=== PATIENT | male | born 1955 | race Caucasian/White ===

== ENCOUNTER 2021-02-20 12:38 | Inpatient (IN) | payer OTHER ==
[~2021-02-20] VITALS: Ht 154.9 cm; Wt 66.2 kg
[2021-02-20] MEDS ORDERED: LABETALOL 5MG/ML SYR 20 MG/4 ML SYRINGE IV ONE (13:15)
[2021-02-20 13:57] LABS: BASOPHILS % 0.9 % (0.0-2.0); EOSINOPHILS % 5.8 % (0.0-5.0); HEMATOCRIT. 28.5 % (42.0-52.0); HEMOGLOBIN. 9.6 g/dL (14.0-18.0); LYMPHOCYTES % 17.3 % (20.0-50.0); MEAN CORPUSCULAR HEMOGLOBIN 32.1 pg (28.0-32.0); MEAN CORPUSCULAR VOLUME 95.4 fL (80.0-94.0); MEAN PLATELET VOLUME 8.9 fl (7.4-10.4); MONOCYTES % 7.4 % (2.0-8.0); NEUTROPHILS % 68.6 % (40.0-76.0); PLATELET 279 x1000/uL (130-400); RED BLOOD CELL COUNT 2.99 mill/uL (4.7-6.1); RED CELL DISTRIBUTION WIDTH 14.4 % (11.6-14.6)
[2021-02-20 14:05] LABS: CHLORIDE 114 mEq/L (98-107)
[2021-02-20 14:09] LABS: INR 0.9; PARTIAL THROMBOPLASTIN TIME 29.1 sec (23.4-31.0); PROTHROMBIN TIME 10.1 sec (9.6-11.0)
[2021-02-20 14:41] LABS: CLARITY URINE CLEAR (CLEAR); COLOR URINE YELLOW (YELLOW); KETONES URINE NEGATIVE (NEGATIVE); LEUKOCYTE ESTERASE URINE NEGATIVE (NEGATIVE); NITRITE URINE NEGATIVE (NEGATIVE); OCCULT BLOOD URINE 1+ (NEGATIVE); PH URINE 6.5 (4.5-8.0); PROTEIN URINE 3+ (NEGATIVE); SPECIFIC GRAVITY URINE 1.011 (1.005-1.030); UROBILINOGEN URINE 0.2 E.U./dL (0.2-1.0)
[2021-02-20 15:00] LABS: *AMPHETAMINES SCREEN URINE NEGATIVE (NEGATIVE); *BARBITURATES SCREEN URINE NEGATIVE (NEGATIVE); *BENZODIAZEPINES SCREEN URINE NEGATIVE (NEGATIVE); *COCAINE SCREEN URINE NEGATIVE (NEGATIVE); CANNABINOID URINE SCREEN NEGATIVE (NEGATIVE); METHADONE URINE SCREEN NEGATIVE (NEGATIVE); OPIATES URINE SCREEN NEGATIVE (NEGATIVE); PHENCYCLIDINE URINE SCREEN NEGATIVE (NEGATIVE)
[2021-02-20] MEDS ORDERED: GUAIFENESIN 200MG/10ML SUGAR FREE UDC PO PRN (16:45)
[2021-02-20] MEDS ORDERED: MORPHINE SULFATE 2 MG/ML CPJ (NOT FOR IM USE) IV PRN (16:45)
[2021-02-20] MEDS ORDERED: MAGNESIUM/ALUMINUM HYDROXIDE/SIMETHICONE 30ML UDC PO PRN (16:45)
[2021-02-20] MEDS ORDERED: ACETAMINOPHEN 650MG/20.3ML UDC GT PRN (16:45)
[2021-02-20] MEDS ORDERED: HYDROCODONE/ACETAMINOPHEN 5/325MG TABLET PO PRN (16:45)
[2021-02-20] MEDS ORDERED: DIPHENHYDRAMINE 50MG/ML VIAL IV PRN (16:45)
[2021-02-20] MEDS ORDERED: NA PHOS,M-B/NA PHOS,DI-BA ENEMA 118ML PR PRN (16:45)
[2021-02-20] MEDS ORDERED: IPRATROPIUM/ALBUTEROL 0.5-3(2.5)MG/3ML NEB NEB PRN (16:45)
[2021-02-20] MEDS ORDERED: ONDANSETRON HCL 4MG/2ML INJ IV PRN (16:45)
[2021-02-20] MEDS ORDERED: ACETAMINOPHEN 650MG SUPP PR PRN (16:45)
[2021-02-20] MEDS ORDERED: LORAZEPAM 0.5MG TABLET PO PRN (16:45)
[2021-02-20] MEDS ORDERED: DOCUSATE SODIUM 100MG CAPSULE PO PRN (16:45)
[2021-02-20] MEDS ORDERED: DEXTROSE 50% WATER 50ML SYRINGE IV PRN (17:15)
[2021-02-20] MEDS: AMLODIPINE 5MG TABLET PO SCH (17:18)
[2021-02-20] MEDS: INSULIN LISPRO 100 UNITS/ML SUBCUT SCH ×2 (18:20→21:00)
[2021-02-20] MEDS: BLOOD SUGAR DIAGNOSTIC STRIP TEST SCH (21:30)
[2021-02-20 22:30] VITALS: BP 178/84
[2021-02-20] MEDS: CLONIDINE 0.1MG TABLET PO PRN ×2 (23:17→23:22)
[2021-02-20] MEDS: FAMOTIDINE 20MG TABLET PO SCH (23:22)
[2021-02-21 00:13] LABS: CREATINE KINASE 45 IU/L (39-308)
[2021-02-21 00:14] LABS: CREATINE KINASE MB FRACTION 2.5 ng/mL (0.5-3.6)
[2021-02-21] MEDS ORDERED: FERR325T6 PO (00:34)
[2021-02-21] MEDS ORDERED: BENA20TA10 PO (00:34)
[2021-02-21] MEDS ORDERED: INSLIS SUBCUT (00:34)
[2021-02-21] MEDS ORDERED: DOCU-138 PO (00:34)
[2021-02-21] MEDS ORDERED: FURO-152 PO (00:34)
[2021-02-21] MEDS ORDERED: INSU100I28 SQ (00:34)
[2021-02-21] MEDS ORDERED: AMLO5TAB4 PO (00:34)
[2021-02-21] MEDS: BLOOD SUGAR DIAGNOSTIC STRIP TEST SCH ×4 (05:18→20:14)
[2021-02-21] MEDS: INSULIN LISPRO 100 UNITS/ML SUBCUT SCH ×4 (05:18→20:17)
[2021-02-21 07:53] LABS: BASOPHILS % 0.9 % (0.0-2.0); EOSINOPHILS % 6.6 % (0.0-5.0); HEMATOCRIT. 27.2 % (42.0-52.0); HEMOGLOBIN. 9.3 g/dL (14.0-18.0); LYMPHOCYTES % 16.9 % (20.0-50.0); MEAN CORPUSCULAR HEMOGLOBIN 32.3 pg (28.0-32.0); MEAN CORPUSCULAR VOLUME 94.4 fL (80.0-94.0); MONOCYTES % 7.7 % (2.0-8.0); NEUTROPHILS % 67.9 % (40.0-76.0); PLATELET 262 x1000/uL (130-400); RED BLOOD CELL COUNT 2.88 mill/uL (4.7-6.1); RED CELL DISTRIBUTION WIDTH 14.2 % (11.6-14.6)
[2021-02-21 08:00] VITALS: BP 156/71
[2021-02-21 08:06] LABS: CHLORIDE 116 mEq/L (98-107)
[2021-02-21 08:16] LABS: LDL CHOLESTEROL 78 mg/dL (5-100); T4 FREE 0.74 ng/dL (0.76-1.46)
[2021-02-21 08:18] LABS: CREATINE KINASE 38 IU/L (39-308)
[2021-02-21 08:19] LABS: HDL CHOLESTEROL 30 mg/dL (40-59)
[2021-02-21] MEDS: AMLODIPINE 5MG TABLET PO SCH ×2 (08:54→18:12)
[2021-02-21] MEDS: BENAZEPRIL 10MG TABLET PO SCH ×2 (08:54→18:12)
[2021-02-21 12:00] VITALS: BP 159/83
[2021-02-21] MEDS ORDERED: SODIUM POLYSTYRENE SULFONATE 15 G/60 ML BOT PO NR (13:00)
[2021-02-21 14:20] LABS: HEPATITIS B SURFACE ANTIGEN NEGATIVE
[2021-02-21] MEDS: FUROSEMIDE 20MG/2ML VIAL IVP SCH (14:33)
[2021-02-21 14:48] LABS: HEPATITIS A AB IGM NEGATIVE (NEGATIVE)
[2021-02-21 16:00] VITALS: BP 162/72
[2021-02-21 20:00] VITALS: BP 158/89
[2021-02-21] MEDS: FAMOTIDINE 20MG TABLET PO SCH (20:14)
[2021-02-22] VITALS: BP 159/85
[2021-02-22 04:00] VITALS: BP 148/80
[2021-02-22] MEDS: BLOOD SUGAR DIAGNOSTIC STRIP TEST SCH ×2 (06:06→11:45)
[2021-02-22] MEDS: INSULIN LISPRO 100 UNITS/ML SUBCUT SCH ×2 (06:06→12:09)
[2021-02-22 08:00] VITALS: BP 156/79
[2021-02-22] MEDS: FUROSEMIDE 20MG/2ML VIAL IVP SCH (09:10)
[2021-02-22] MEDS: AMLODIPINE 5MG TABLET PO SCH (09:11)
[2021-02-22] MEDS: BENAZEPRIL 10MG TABLET PO SCH (09:11)
[2021-02-22] MEDS ORDERED: BENA20TA10 MT (11:15)
[2021-02-22] MEDS ORDERED: FURO-151 MT (11:15)
[2021-02-22] MEDS ORDERED: AMLO5TAB4 MT (11:15)
[2021-02-22 12:00] VITALS: BP 168/76
[2021-02-22] MEDS: CLONIDINE 0.1MG TABLET PO PRN (12:08)
[2021-02-22 12:39] LABS: BASOPHILS % 0.7 % (0.0-2.0); EOSINOPHILS % 5.6 % (0.0-5.0); HEMATOCRIT. 29.4 % (42.0-52.0); HEMOGLOBIN. 10.2 g/dL (14.0-18.0); LYMPHOCYTES % 16.8 % (20.0-50.0); MEAN CORPUSCULAR HEMOGLOBIN 32.5 pg (28.0-32.0); MEAN CORPUSCULAR VOLUME 93.8 fL (80.0-94.0); MEAN PLATELET VOLUME 8.5 fl (7.4-10.4); MONOCYTES % 6.7 % (2.0-8.0); NEUTROPHILS % 70.2 % (40.0-76.0); PLATELET 294 x1000/uL (130-400); RED BLOOD CELL COUNT 3.14 mill/uL (4.7-6.1); RED CELL DISTRIBUTION WIDTH 13.6 % (11.6-14.6)
[2021-02-22 14:28] VITALS: BP 135/52
[2021-02-22 16:00] VITALS: BP 135/52
== END 2021-02-22 16:45 | disposition home or self-care (01) | DRG 304 ==
LOC: ER 12:38 → 5WST 15:02 → EDBEDREQ 15:45 → EDBEDREQTM 15:45 → SUPCPDRO 16:31 → ENRESERV 21:13
PROVIDERS: ADMIT Internal Medicine; ATTEND Internal Medicine
PROC: 5A1D70Z Performance of Urinary Filtration, Intermittent, Less than 6 Hours Per Day (ICD-10-PCS; principal; 2021-02-20)
DX: I16.0 Hypertensive urgency (principal); N18.6 End stage renal disease; E46 Unspecified protein-calorie malnutrition; I12.0 Hypertensive chronic kidney disease with stage 5 chronic kidney disease or end stage renal disease; D64.9 Anemia, unspecified; E11.22 Type 2 diabetes mellitus with diabetic chronic kidney disease; E78.00 Pure hypercholesterolemia, unspecified; E78.5 Hyperlipidemia, unspecified; Z20.822 Contact with and (suspected) exposure to COVID-19; Z79.4 Long term (current) use of insulin; Z99.2 Dependence on renal dialysis; Z79.899 Other long term (current) drug therapy; Z88.8 Allergy status to other drugs, medicaments and biological substances; Z91.14 Patient's other noncompliance with medication regimen; Z68.27 Body mass index [BMI] 27.0-27.9, adult
CPT/HCPCS: 36415; 71045; 80048; 80053; 80061; 80305; 81003; 82550; 82553; 82962; 83036; 84439; 84443; 84484; 85025; 86705; 86709; 86803; 87340; 87426; 93005; 93970; 97162; 99285; C1893; J1815; J1940; J3490

== ENCOUNTER 2021-07-10 19:47 | Emergency (ER) | payer OTHER ==
[~2021-07-10] VITALS: Ht 154.9 cm; Wt 64.0 kg
[~2021-07-10 19:47] MED LIST: AMLO5TAB4 MT; AMLO5TAB4 PO; BENA20TA10 MT; BENA20TA10 PO; DOCU-138 PO; FERR325T6 PO; FURO-151 MT; INSLIS SUBCUT; INSU100I28 SQ
[2021-07-10 21:13] LABS: BASOPHILS % 1.4 % (0.0-2.0); EOSINOPHILS % 4.9 % (0.0-5.0); HEMATOCRIT. 24.8 % (42.0-52.0); HEMOGLOBIN. 8.1 g/dL (14.0-18.0); LYMPHOCYTES % 10.8 % (20.0-50.0); MEAN CORPUSCULAR HEMOGLOBIN 30.5 pg (28.0-32.0); MEAN CORPUSCULAR VOLUME 93.8 fL (80.0-94.0); MEAN PLATELET VOLUME 10.6 fl (7.4-10.4); MONOCYTES % 9.7 % (2.0-8.0); NEUTROPHILS % 73.2 % (40.0-76.0); PLATELET 197 x1000/uL (130-400); RED BLOOD CELL COUNT 2.65 mill/uL (4.7-6.1); RED CELL DISTRIBUTION WIDTH 15.8 % (11.6-14.6)
[2021-07-10 21:18] LABS: CHLORIDE 118 mEq/L (98-107)
[2021-07-10] MEDS ORDERED: AMIODARONE HCL 900 MG in DEXT 5% WATER 482 ML IV STA (23:34)
[2021-07-10] MEDS ORDERED: NIFEDIPINE 10MG CAPSULE PO ONE (23:45)
[2021-07-11 01:00] VITALS: BP 116/60
== END 2021-07-11 02:40 | disposition short-term general hospital (02) ==
LOC: ER 19:47 → CANBEDREQ 07-11 02:29 → ER 07-11 02:40
DX: J81.1 Chronic pulmonary edema (principal); I12.0 Hypertensive chronic kidney disease with stage 5 chronic kidney disease or end stage renal disease; R00.0 Tachycardia, unspecified; E11.22 Type 2 diabetes mellitus with diabetic chronic kidney disease; N18.6 End stage renal disease; D64.9 Anemia, unspecified; Z99.2 Dependence on renal dialysis; Z79.84 Long term (current) use of oral hypoglycemic drugs
CPT/HCPCS: 36415; 71045; 80053; 83880; 84484; 85025; 93005; 99285; J0282; J7060

== ENCOUNTER 2021-07-25 14:23 | Inpatient (IN) | payer OTHER ==
[~2021-07-25] VITALS: Ht 157.5 cm; Wt 69.2 kg
[2021-07-25] MEDS ORDERED: ONDANSETRON HCL 4MG/2ML INJ IV STA (14:47)
[2021-07-25] MEDS ORDERED: CLONIDINE 0.2MG TABLET PO ONE (15:00)
[2021-07-25] MEDS ORDERED: ONDANSETRON HCL 4MG/2ML INJ IM ONE (15:00)
[2021-07-25 15:15] LABS: HEMATOCRIT. 25.6 % (42.0-52.0); HEMOGLOBIN. 7.9 g/dL (14.0-18.0); MEAN CORPUSCULAR HEMOGLOBIN 28.8 pg (28.0-32.0); MEAN CORPUSCULAR VOLUME 92.8 fL (80.0-94.0); MEAN PLATELET VOLUME 9.2 fl (7.4-10.4); PLATELET 307 x1000/uL (130-400); RED BLOOD CELL COUNT 2.76 mill/uL (4.7-6.1); RED CELL DISTRIBUTION WIDTH 15.5 % (11.6-14.6)
[2021-07-25 15:17] LABS: CHLORIDE 110 mEq/L (98-107)
[2021-07-25 15:57] LABS: PLATELET ESTIMATE NORMAL
[2021-07-25] MEDS ORDERED: ASPIRIN 81MG TABLET PO ONE (17:15)
[2021-07-25] MEDS ORDERED: NITROGLYCERIN OINT 1GM/INCH UDPKT TD ONE (17:15)
[2021-07-26] VITALS (11 sets, daily range): BP systolic 131–185; BP diastolic 44–85
[2021-07-26] MEDS ORDERED: *PATIENT'S OWN MEDICATION STORAGE XX SCH (03:00)
[2021-07-26] MEDS ORDERED: FURO40TA5 PO (03:19)
[2021-07-26] MEDS ORDERED: BISA5TAB10 PO (03:19)
[2021-07-26] MEDS ORDERED: BENA10TA74 PO (03:19)
[2021-07-26] MEDS: HEPARIN SODIUM 1,000 UNIT/1ML VIAL IV NR (03:48)
[2021-07-26 04:12] LABS: HEPATITIS B SURFACE ANTIGEN NEGATIVE
[2021-07-26] MEDS ORDERED: DEXTROSE 50% WATER 50ML SYRINGE IV PRN (04:30)
[2021-07-26] MEDS ORDERED: ACETAMINOPHEN 325MG TABLET PO PRN (04:30)
[2021-07-26] MEDS ORDERED: ONDANSETRON HCL 4MG/2ML INJ IV PRN (04:30)
[2021-07-26] MEDS ORDERED: NALOXONE HCL 0.4MG/ML VIAL IV PRN (04:45)
[2021-07-26] MEDS: BLOOD SUGAR DIAGNOSTIC STRIP TEST SCH ×4 (07:10→20:42)
[2021-07-26] MEDS: INSULIN LISPRO 100 UNITS/ML SUBCUT SCH ×4 (07:40→20:42)
[2021-07-26] MEDS: HYDROCODONE/ACETAMINOPHEN 5/325MG TABLET PO PRN (08:49)
[2021-07-26] MEDS ORDERED: HEPARIN 5000 UNITS/ML VIAL SUBCUT SCH (09:00)
[2021-07-26 10:35] LABS: MEAN CORPUSCULAR HEMOGLOBIN 28.9 pg (28.0-32.0); MEAN CORPUSCULAR VOLUME 91.4 fL (80.0-94.0); MEAN PLATELET VOLUME 9.4 fl (7.4-10.4); PLATELET 214 x1000/uL (130-400); RED BLOOD CELL COUNT 2.08 mill/uL (4.7-6.1)
[2021-07-26 10:50] LABS: HEMATOCRIT. 19.1 % (42.0-52.0)
[2021-07-26] MEDS ORDERED: VANCOMYCIN 1500MG in DEXTROSE 5% WATER 250ML IV NR (12:00)
[2021-07-26 12:08] LABS: BG BASE EXCESS -4.8 mmol/L (-2.0-2.0); BG CARBOXYHEMOGLOBIN 0.3 % (0.5-1.5); BG DEOXYHEMOGLOBIN 2.7 % (0.0-5.0); BG HCO3 ACT 20.8 mmol/L (22.0-26.0); BG METHEMOGLOBIN 0.2 % (0.0-1.5); BG OXYGEN SATURATION 97.3 % (92.0-98.5); BG OXYHEMOGLOBIN 96.8 % (94.0-97.0); BG PCO2 40.6 mmHg (35.0-45.0); BG PH 7.327 (7.350-7.450); BG SAMPLE SITE RIGHT BRACHIAL; BG TOTAL HEMOGLOBIN 7.6 g/dL (12.0-18.0); BG VENT MODE NASAL CANNULA
[2021-07-26] MEDS: PIPERACILLIN/TAZOBACTAM 3.375 G in DEXTROSE 5% WATER 50 ML IV SCH ×2 (16:30→20:33)
[2021-07-26] MEDS: CLONIDINE 0.1MG TABLET PO PRN (17:24)
[2021-07-26 17:56] LABS: PLATELET ESTIMATE NORMAL
[2021-07-26] MEDS: IPRATROPIUM/ALBUTEROL 0.5-3(2.5)MG/3ML NEB HHN SCH (20:30)
[2021-07-27] VITALS (8 sets, daily range): BP systolic 110–150; BP diastolic 47–65
[2021-07-27] MEDS: IPRATROPIUM/ALBUTEROL 0.5-3(2.5)MG/3ML NEB HHN SCH ×4 (01:01→21:43)
[2021-07-27] MEDS: BLOOD SUGAR DIAGNOSTIC STRIP TEST SCH ×4 (06:03→21:42)
[2021-07-27] MEDS: INSULIN LISPRO 100 UNITS/ML SUBCUT SCH ×4 (06:03→21:00)
[2021-07-27] MEDS: PIPERACILLIN/TAZOBACTAM 3.375 G in DEXTROSE 5% WATER 50 ML IV SCH ×2 (09:07→21:47)
[2021-07-27] MEDS ORDERED: BISACODYL 5MG TABLET PO PRN (13:30)
[2021-07-27] MEDS ORDERED: FUROSEMIDE 40MG/4ML VIAL IVP NR (13:30)
[2021-07-27] MEDS: DOCUSATE SODIUM 100MG CAPSULE PO SCH (14:22)
[2021-07-27] MEDS ORDERED: LIDOCAINE HCL 1% 20ML VIAL (Pyxis) INJ ONE (14:24)
[2021-07-27] MEDS ORDERED: LIDOCAINE HCL 1% 10 MG/ML 10ML VIAL ONE (15:01)
[2021-07-27] MEDS ORDERED: SORBITOL 70% SOLN 30ML PO NR (16:30)
[2021-07-27 16:59] LABS: BG BASE EXCESS -6.9 mmol/L (-2.0-2.0); BG CARBOXYHEMOGLOBIN 0.2 % (0.5-1.5); BG DEOXYHEMOGLOBIN 9.7 % (0.0-5.0); BG FRACTION INSPIRED OXYGEN 21; BG METHEMOGLOBIN 0.2 % (0.0-1.5); BG OXYGEN SATURATION 90.3 % (92.0-98.5); BG OXYHEMOGLOBIN 89.9 % (94.0-97.0); BG PCO2 39.5 mmHg (35.0-45.0); BG PH 7.299 (7.350-7.450); BG PO2 61.6 mmHg (75.0-100.0); BG VENT MODE ROOM AIR
[2021-07-27 16:59] LABS: HEMOGLOBIN. 8.4 g/dL (14.0-18.0); MEAN CORPUSCULAR HEMOGLOBIN 29.5 pg (28.0-32.0); MEAN CORPUSCULAR VOLUME 91.1 fL (80.0-94.0); MEAN PLATELET VOLUME 9.5 fl (7.4-10.4); PLATELET 213 x1000/uL (130-400); RED BLOOD CELL COUNT 2.86 mill/uL (4.7-6.1); RED CELL DISTRIBUTION WIDTH 15.8 % (11.6-14.6)
[2021-07-27 17:03] LABS: CHLORIDE 106 mEq/L (98-107)
[2021-07-27 17:06] LABS: PROTHROMBIN TIME 11.1 sec (9.6-11.0)
[2021-07-27 17:09] LABS: LDL CHOLESTEROL 46 mg/dL (5-100); TOTAL IRON BINDING CAPACITY 190 ug/dL (250-450)
[2021-07-27 17:12] LABS: T4 FREE 1.01 ng/dL (0.76-1.46)
[2021-07-27 17:14] LABS: HDL CHOLESTEROL 39 mg/dL (40-59)
[2021-07-27 17:33] LABS: FERRITIN 797 ng/mL (22-322); VITAMIN B12 SERUM 534 pg/mL (211-911)
[2021-07-27] MEDS: PANTOPRAZOLE SODIUM 40 MG/VIAL IV SCH (17:37)
[2021-07-27 18:40] LABS: PLATELET ESTIMATE NORMAL
[2021-07-27] MEDS ORDERED: VANCOMYCIN 500 MG PREMIX 100 ML IV NR (23:00)
[2021-07-28] VITALS: BP 165/76
[2021-07-28 01:25] LABS: HEMATOCRIT. 26.6 % (42.0-52.0); HEMOGLOBIN. 8.6 g/dL (14.0-18.0); MEAN CORPUSCULAR HEMOGLOBIN 29.3 pg (28.0-32.0); MEAN CORPUSCULAR VOLUME 90.4 fL (80.0-94.0); MEAN PLATELET VOLUME 9.7 fl (7.4-10.4); PLATELET 218 x1000/uL (130-400); RED BLOOD CELL COUNT 2.94 mill/uL (4.7-6.1); RED CELL DISTRIBUTION WIDTH 15.4 % (11.6-14.6)
[2021-07-28] MEDS: CLONIDINE 0.1MG TABLET PO PRN ×2 (02:21→22:28)
[2021-07-28] MEDS: PIPERACILLIN/TAZOBACTAM 3.375 G in DEXTROSE 5% WATER 50 ML IV SCH ×3 (02:21→22:29)
[2021-07-28] MEDS: IPRATROPIUM/ALBUTEROL 0.5-3(2.5)MG/3ML NEB HHN SCH ×4 (02:36→21:26)
[2021-07-28 03:51] LABS: PLATELET ESTIMATE NORMAL
[2021-07-28 04:00] VITALS: BP 121/53
[2021-07-28 06:20] LABS: HEMATOCRIT. 25.1 % (42.0-52.0); HEMOGLOBIN. 8.2 g/dL (14.0-18.0); MEAN CORPUSCULAR HEMOGLOBIN 29.9 pg (28.0-32.0); MEAN CORPUSCULAR VOLUME 91.5 fL (80.0-94.0); PLATELET 200 x1000/uL (130-400); RED BLOOD CELL COUNT 2.74 mill/uL (4.7-6.1); RED CELL DISTRIBUTION WIDTH 15.1 % (11.6-14.6)
[2021-07-28] MEDS: INSULIN LISPRO 100 UNITS/ML SUBCUT SCH ×4 (06:29→22:41)
[2021-07-28 06:39] LABS: FOLIC ACID (FOLATE) SERUM 5.9 ng/mL (>5.38)
[2021-07-28] MEDS: BLOOD SUGAR DIAGNOSTIC STRIP TEST SCH ×4 (07:10→21:00)
[2021-07-28 08:00] VITALS: BP 147/81
[2021-07-28] MEDS: DOCUSATE SODIUM 100MG CAPSULE PO SCH (09:18)
[2021-07-28] MEDS: PANTOPRAZOLE SODIUM 40 MG/VIAL IV SCH ×2 (09:19→22:28)
[2021-07-28 09:54] LABS: PROTHROMBIN TIME 10.9 sec (9.6-11.0)
[2021-07-28] MEDS ORDERED: SODIUM BICARBONATE 4% (2.4MEQ) 5ML VIAL IV ONE (10:48)
[2021-07-28] MEDS ORDERED: LIDOCAINE HCL/EPINEPHRINE 1%-EPI 1:100,000 20 ML VIAL ONE (10:50)
[2021-07-28 12:00] VITALS: BP 142/59
[2021-07-28 14:09] LABS: PLATELET ESTIMATE NORMAL
[2021-07-28 16:00] VITALS: BP 132/68
[2021-07-28] MEDS ORDERED: EPOETIN ALFA 10000UNITS/ML VIAL SUBCUT ONE (18:00)
[2021-07-28 20:00] VITALS: BP 170/73
[2021-07-28] MEDS ORDERED: EPOETIN ALFA-EPBX 4,000 UNIT/ML VIAL SUBCUT NR (21:00)
[2021-07-28] MEDS: ZOLPIDEM TARTRATE 5MG TABLET PO PRN (22:28)
[2021-07-28] MEDS: HYDROCODONE/ACETAMINOPHEN 5/325MG TABLET PO PRN (22:29)
[2021-07-29] VITALS (8 sets, daily range): BP systolic 132–177; BP diastolic 63–73
[2021-07-29] MEDS: IPRATROPIUM/ALBUTEROL 0.5-3(2.5)MG/3ML NEB HHN SCH ×4 (03:07→20:55)
[2021-07-29] MEDS: CLONIDINE 0.1MG TABLET PO PRN ×2 (05:12→20:28)
[2021-07-29] MEDS: BLOOD SUGAR DIAGNOSTIC STRIP TEST SCH ×4 (06:01→20:31)
[2021-07-29] MEDS: INSULIN LISPRO 100 UNITS/ML SUBCUT SCH ×4 (06:01→20:31)
[2021-07-29 06:44] LABS: HEMATOCRIT. 25.1 % (42.0-52.0); HEMOGLOBIN. 8.2 g/dL (14.0-18.0); MEAN CORPUSCULAR HEMOGLOBIN 30.2 pg (28.0-32.0); MEAN CORPUSCULAR VOLUME 92.1 fL (80.0-94.0); MEAN PLATELET VOLUME 9.9 fl (7.4-10.4); PLATELET 203 x1000/uL (130-400); RED BLOOD CELL COUNT 2.73 mill/uL (4.7-6.1); RED CELL DISTRIBUTION WIDTH 15.5 % (11.6-14.6)
[2021-07-29] MEDS: DOCUSATE SODIUM 100MG CAPSULE PO SCH (08:57)
[2021-07-29] MEDS: PIPERACILLIN/TAZOBACTAM 3.375 G in DEXTROSE 5% WATER 50 ML IV SCH ×2 (08:57→20:29)
[2021-07-29 09:24] LABS: PLATELET ESTIMATE NORMAL
[2021-07-29] MEDS: PANTOPRAZOLE SODIUM 40 MG/VIAL IV SCH ×2 (12:58→20:28)
[2021-07-29] MEDS: LOSARTAN POTASSIUM 25 MG TABLET PO SCH ×2 (17:00→17:08)
[2021-07-29] MEDS: AMLODIPINE 2.5MG TABLET PO SCH (20:29)
[2021-07-30] VITALS: BP 176/76
[2021-07-30] MEDS: IPRATROPIUM/ALBUTEROL 0.5-3(2.5)MG/3ML NEB HHN SCH ×4 (01:52→21:39)
[2021-07-30] MEDS: CLONIDINE 0.2MG TABLET PO PRN (02:27)
[2021-07-30] MEDS: ZOLPIDEM TARTRATE 5MG TABLET PO PRN ×2 (02:31→22:33)
[2021-07-30 04:00] VITALS: BP 170/80
[2021-07-30] MEDS: INSULIN LISPRO 100 UNITS/ML SUBCUT SCH ×4 (06:17→20:34)
[2021-07-30] MEDS: BLOOD SUGAR DIAGNOSTIC STRIP TEST SCH ×4 (06:17→20:35)
[2021-07-30 06:26] LABS: BASOPHILS % 1.2 % (0.0-2.0); EOSINOPHILS % 4.5 % (0.0-5.0); HEMATOCRIT. 24.4 % (42.0-52.0); LYMPHOCYTES % 9.2 % (20.0-50.0); MEAN CORPUSCULAR HEMOGLOBIN 29.9 pg (28.0-32.0); MEAN CORPUSCULAR VOLUME 91.8 fL (80.0-94.0); MEAN PLATELET VOLUME 9.6 fl (7.4-10.4); MONOCYTES % 14.2 % (2.0-8.0); NEUTROPHILS % 70.9 % (40.0-76.0); PLATELET 192 x1000/uL (130-400); RED BLOOD CELL COUNT 2.66 mill/uL (4.7-6.1); RED CELL DISTRIBUTION WIDTH 14.9 % (11.6-14.6)
[2021-07-30 07:30] LABS: CHLORIDE 105 mEq/L (98-107)
[2021-07-30 08:00] VITALS: BP 163/71
[2021-07-30] MEDS: AMLODIPINE 2.5MG TABLET PO SCH (09:17)
[2021-07-30] MEDS: PIPERACILLIN/TAZOBACTAM 3.375 G in DEXTROSE 5% WATER 50 ML IV SCH ×2 (09:17→20:34)
[2021-07-30] MEDS: LOSARTAN POTASSIUM 25 MG TABLET PO SCH (09:17)
[2021-07-30] MEDS: DOCUSATE SODIUM 100MG CAPSULE PO SCH (09:17)
[2021-07-30] MEDS: PANTOPRAZOLE SODIUM 40 MG/VIAL IV SCH ×2 (09:17→20:33)
[2021-07-30] MEDS: CLONIDINE 0.1MG TABLET PO PRN (09:34)
[2021-07-30 12:00] VITALS: BP 158/74
[2021-07-30] MEDS ORDERED: VANCOMYCIN 500 MG PREMIX 100 ML IV NR (13:00)
[2021-07-30 14:41] LABS: BG BASE EXCESS -4.2 mmol/L (-2.0-2.0); BG CARBOXYHEMOGLOBIN 0.3 % (0.5-1.5); BG DEOXYHEMOGLOBIN 3.3 % (0.0-5.0); BG FRACTION INSPIRED OXYGEN 28; BG HCO3 ACT 21.4 mmol/L (22.0-26.0); BG METHEMOGLOBIN 0.2 % (0.0-1.5); BG OXYGEN SATURATION 96.7 % (92.0-98.5); BG OXYHEMOGLOBIN 96.2 % (94.0-97.0); BG PCO2 41.4 mmHg (35.0-45.0); BG PH 7.332 (7.350-7.450); BG SAMPLE SITE LEFT RADIAL; BG TOTAL HEMOGLOBIN 8.9 g/dL (12.0-18.0); BG VENT MODE NASAL CANNULA
[2021-07-30] MEDS ORDERED: FUROSEMIDE 40MG/4ML VIAL IVP NR (15:30)
[2021-07-30 16:00] VITALS: BP 112/55
[2021-07-30] MEDS: LOSARTAN POTASSIUM 50 MG TABLET PO SCH ×2 (16:39→16:40)
[2021-07-30 20:00] VITALS: BP 148/76
[2021-07-30] MEDS: AMLODIPINE 5MG TABLET PO SCH (20:33)
[2021-07-31] VITALS: BP 142/66
[2021-07-31] MEDS: IPRATROPIUM/ALBUTEROL 0.5-3(2.5)MG/3ML NEB HHN SCH ×3 (00:41→20:06)
[2021-07-31 04:00] VITALS: BP 171/73
[2021-07-31] MEDS: CLONIDINE 0.1MG TABLET PO PRN ×2 (06:05→12:28)
[2021-07-31] MEDS: INSULIN LISPRO 100 UNITS/ML SUBCUT SCH ×4 (06:22→21:25)
[2021-07-31] MEDS: BLOOD SUGAR DIAGNOSTIC STRIP TEST SCH ×4 (06:22→20:57)
[2021-07-31 08:00] VITALS: BP 143/72
[2021-07-31 08:09] LABS: BASOPHILS % 0.9 % (0.0-2.0); HEMATOCRIT. 27.1 % (42.0-52.0); HEMOGLOBIN. 8.9 g/dL (14.0-18.0); MEAN CORPUSCULAR HEMOGLOBIN 29.9 pg (28.0-32.0); MEAN CORPUSCULAR VOLUME 91.5 fL (80.0-94.0); MEAN PLATELET VOLUME 9.7 fl (7.4-10.4); MONOCYTES % 12.7 % (2.0-8.0); NEUTROPHILS % 74.4 % (40.0-76.0); PLATELET 237 x1000/uL (130-400); RED BLOOD CELL COUNT 2.96 mill/uL (4.7-6.1); RED CELL DISTRIBUTION WIDTH 14.9 % (11.6-14.6)
[2021-07-31] MEDS: DOCUSATE SODIUM 100MG CAPSULE PO SCH (09:00)
[2021-07-31] MEDS: PANTOPRAZOLE SODIUM 40 MG/VIAL IV SCH ×2 (09:00→21:17)
[2021-07-31] MEDS: LOSARTAN POTASSIUM 50 MG TABLET PO SCH ×2 (09:00→17:00)
[2021-07-31] MEDS: AMLODIPINE 5MG TABLET PO SCH ×2 (09:00→21:16)
[2021-07-31 12:00] VITALS: BP 160/67
[2021-07-31] MEDS ORDERED: NAFCILLIN SODIUM 2000MG in SODIUM CHLORIDE 0.9% 100ML IV SCH (15:00)
[2021-07-31] MEDS ORDERED: CEFAZOLIN 1000MG PREMIX 50 ML IV SCH (15:00)
[2021-07-31 16:00] VITALS: BP 137/80
[2021-07-31 20:00] VITALS: BP 159/65
[2021-07-31] MEDS: EPOETIN ALFA-EPBX 4,000 UNIT/ML VIAL SUBCUT SCH (21:40)
[2021-07-31] MEDS ORDERED: BISACODYL 5MG TABLET PO NR (22:00)
[2021-08-01] VITALS: BP 150/76
[2021-08-01] MEDS: IPRATROPIUM/ALBUTEROL 0.5-3(2.5)MG/3ML NEB HHN SCH ×4 (01:08→21:29)
[2021-08-01 04:00] VITALS: BP 157/74
[2021-08-01] MEDS: BLOOD SUGAR DIAGNOSTIC STRIP TEST SCH ×4 (06:35→21:00)
[2021-08-01 07:27] LABS: BASOPHILS % 1.2 % (0.0-2.0); EOSINOPHILS % 3.5 % (0.0-5.0); HEMATOCRIT. 24.6 % (42.0-52.0); HEMOGLOBIN. 8.1 g/dL (14.0-18.0); LYMPHOCYTES % 8.9 % (20.0-50.0); MEAN CORPUSCULAR HEMOGLOBIN 30.3 pg (28.0-32.0); MEAN CORPUSCULAR VOLUME 91.8 fL (80.0-94.0); MEAN PLATELET VOLUME 9.6 fl (7.4-10.4); MONOCYTES % 12.6 % (2.0-8.0); NEUTROPHILS % 73.8 % (40.0-76.0); PLATELET 220 x1000/uL (130-400); RED BLOOD CELL COUNT 2.68 mill/uL (4.7-6.1); RED CELL DISTRIBUTION WIDTH 15.1 % (11.6-14.6)
[2021-08-01] MEDS: INSULIN LISPRO 100 UNITS/ML SUBCUT SCH ×4 (07:40→21:00)
[2021-08-01 08:00] VITALS: BP 177/72
[2021-08-01] MEDS ORDERED: LIDOCAINE HCL 1% 20ML VIAL (Pyxis) INJ ONE (08:13)
[2021-08-01] MEDS ORDERED: FENTANYL CITRATE/PF 50MCG/ML 2ML VIAL ONE (08:13)
[2021-08-01] MEDS ORDERED: LIDOCAINE HCL 1% 10 MG/ML 10ML VIAL ONE (08:14)
[2021-08-01] MEDS: DOCUSATE SODIUM 100MG CAPSULE PO SCH (09:00)
[2021-08-01] MEDS: AMLODIPINE 5MG TABLET PO SCH ×2 (09:00→21:00)
[2021-08-01] MEDS: BISACODYL 5MG TABLET PO SCH ×2 (09:00→17:00)
[2021-08-01] MEDS: LOSARTAN POTASSIUM 50 MG TABLET PO SCH ×2 (09:00→17:53)
[2021-08-01] MEDS ORDERED: FUROSEMIDE 100MG/10ML VIAL IVP SCH (11:15)
[2021-08-01 12:00] VITALS: BP 182/80
[2021-08-01] MEDS ORDERED: CEFAZOLIN 1000MG PREMIX 50 ML IV SCH (15:00)
[2021-08-01 16:00] VITALS: BP 155/61
[2021-08-01 17:11] LABS: BG BASE EXCESS 1.2 mmol/L (-2.0-2.0); BG CARBOXYHEMOGLOBIN 0.3 % (0.5-1.5); BG DEOXYHEMOGLOBIN 2.6 % (0.0-5.0); BG FRACTION INSPIRED OXYGEN 28; BG HCO3 ACT 25.3 mmol/L (22.0-26.0); BG METHEMOGLOBIN 0.2 % (0.0-1.5); BG OXYGEN SATURATION 97.4 % (92.0-98.5); BG OXYHEMOGLOBIN 96.9 % (94.0-97.0); BG PCO2 38.2 mmHg (35.0-45.0); BG PH 7.439 (7.350-7.450); BG PO2 97.4 mmHg (75.0-100.0); BG SAMPLE SITE RIGHT RADIAL; BG TOTAL HEMOGLOBIN 9.4 g/dL (12.0-18.0); BG VENT MODE NASAL CANNULA
[2021-08-01] MEDS: PANTOPRAZOLE SODIUM 40 MG/VIAL IV SCH ×2 (17:52→21:00)
[2021-08-01] MEDS: CEFAZOLIN 2000MG in DEXTROSE 5% WATER 100ML IV SCH (17:52)
[2021-08-01] MEDS ORDERED: FUROSEMIDE 100MG/10ML VIAL IVP NR (18:00)
[2021-08-01 20:00] VITALS: BP 133/79
[2021-08-01] MEDS: EPOETIN ALFA-EPBX 4,000 UNIT/ML VIAL SUBCUT SCH (23:14)
[2021-08-02] VITALS (15 sets, daily range): BP systolic 126–184; BP diastolic 58–82
[2021-08-02] MEDS: IPRATROPIUM/ALBUTEROL 0.5-3(2.5)MG/3ML NEB HHN SCH ×3 (01:12→14:50)
[2021-08-02] MEDS: CLONIDINE 0.2MG TABLET PO PRN (01:16)
[2021-08-02] MEDS: BLOOD SUGAR DIAGNOSTIC STRIP TEST SCH (06:19)
[2021-08-02] MEDS: INSULIN LISPRO 100 UNITS/ML SUBCUT SCH (06:20)
[2021-08-02 06:24] LABS: BASOPHILS % 1.3 % (0.0-2.0); EOSINOPHILS % 3.1 % (0.0-5.0); HEMATOCRIT. 24.6 % (42.0-52.0); HEMOGLOBIN. 7.9 g/dL (14.0-18.0); LYMPHOCYTES % 9.9 % (20.0-50.0); MEAN CORPUSCULAR HEMOGLOBIN 29.9 pg (28.0-32.0); MEAN CORPUSCULAR VOLUME 93.3 fL (80.0-94.0); MEAN PLATELET VOLUME 9.4 fl (7.4-10.4); MONOCYTES % 12.1 % (2.0-8.0); NEUTROPHILS % 73.6 % (40.0-76.0); PLATELET 220 x1000/uL (130-400); RED BLOOD CELL COUNT 2.64 mill/uL (4.7-6.1); RED CELL DISTRIBUTION WIDTH 15.2 % (11.6-14.6)
[2021-08-02] MEDS: BISACODYL 5MG TABLET PO SCH (09:02)
[2021-08-02] MEDS: LOSARTAN POTASSIUM 50 MG TABLET PO SCH ×2 (09:02→17:00)
[2021-08-02] MEDS: DOCUSATE SODIUM 100MG CAPSULE PO SCH (09:02)
[2021-08-02] MEDS: AMLODIPINE 5MG TABLET PO SCH (09:02)
[2021-08-02] MEDS: PANTOPRAZOLE SODIUM 40 MG/VIAL IV SCH (09:03)
[2021-08-02] MEDS ORDERED: HEPARIN 1000 UNITS/ML 10ML ONE (10:44)
[2021-08-02] MEDS ORDERED: LIDOCAINE HCL 1% 20ML VIAL (Pyxis) INJ ONE (10:44)
[2021-08-02] MEDS ORDERED: LIDOCAINE HCL 1% 10 MG/ML 10ML VIAL ONE (10:45)
[2021-08-02] MEDS ORDERED: FENTANYL CITRATE/PF 50MCG/ML 2ML VIAL ONE (11:30)
[2021-08-02] MEDS ORDERED: FENTANYL CITRATE/PF 50MCG/ML 2ML VIAL IV ONE (12:00)
[2021-08-02 16:02] LABS: KETONES URINE NEGATIVE (NEGATIVE); LEUKOCYTE ESTERASE URINE TRACE (NEGATIVE); NITRITE URINE NEGATIVE (NEGATIVE); OCCULT BLOOD URINE 3+ (NEGATIVE); PROTEIN URINE 4+ (NEGATIVE); UROBILINOGEN URINE 0.2 E.U./dL (0.2-1.0)
[2021-08-02 16:04] LABS: COLOR URINE RED (YELLOW)
[2021-08-02 16:05] LABS: CLARITY URINE CLOUDY (CLEAR)
[2021-08-02] MEDS: CEFAZOLIN 2000MG in DEXTROSE 5% WATER 100ML IV SCH (17:00)
[2021-08-02] MEDS: CLONIDINE 0.1MG TABLET PO PRN (18:48)
== END 2021-08-02 19:12 | DRG 314 ==
LOC: ER 14:42 → 8WST 17:34 → EDBEDREQTM 17:40 → EDBEDREQ 17:40 → ENRESERV 21:49
PROVIDERS: ADMIT Internal Medicine; ATTEND Internal Medicine
PROC: 30233N1 Transfusion of Nonautologous Red Blood Cells into Peripheral Vein, Percutaneous Approach (ICD-10-PCS; 2021-07-26)
PROC: 5A1D70Z Performance of Urinary Filtration, Intermittent, Less than 6 Hours Per Day (ICD-10-PCS; 2021-07-26)
PROC: 0JPT3XZ Removal of Tunneled Vascular Access Device from Trunk Subcutaneous Tissue and Fascia, Percutaneous Approach (ICD-10-PCS; principal; 2021-07-27)
PROC: 02PYX3Z Removal of Infusion Device from Great Vessel, External Approach (ICD-10-PCS; 2021-07-27)
PROC: 5A1D70Z Performance of Urinary Filtration, Intermittent, Less than 6 Hours Per Day (ICD-10-PCS; 2021-07-27)
PROC: 5A09357 Assistance with Respiratory Ventilation, Less than 24 Consecutive Hours, Continuous Positive Airway Pressure (ICD-10-PCS; 2021-07-27)
PROC: 02HV33Z Insertion of Infusion Device into Superior Vena Cava, Percutaneous Approach (ICD-10-PCS; 2021-07-28)
PROC: B518ZZA Fluoroscopy of Superior Vena Cava, Guidance (ICD-10-PCS; 2021-07-28)
PROC: B548ZZA Ultrasonography of Superior Vena Cava, Guidance (ICD-10-PCS; 2021-07-28)
PROC: 0W993ZZ Drainage of Right Pleural Cavity, Percutaneous Approach (ICD-10-PCS; 2021-07-28)
PROC: 5A1D70Z Performance of Urinary Filtration, Intermittent, Less than 6 Hours Per Day (ICD-10-PCS; 2021-07-29)
PROC: 5A1D70Z Performance of Urinary Filtration, Intermittent, Less than 6 Hours Per Day (ICD-10-PCS; 2021-07-31)
PROC: 02PYX3Z Removal of Infusion Device from Great Vessel, External Approach (ICD-10-PCS; 2021-08-02)
PROC: 02HV33Z Insertion of Infusion Device into Superior Vena Cava, Percutaneous Approach (ICD-10-PCS; 2021-08-02)
PROC: 0JH63XZ Insertion of Tunneled Vascular Access Device into Chest Subcutaneous Tissue and Fascia, Percutaneous Approach (ICD-10-PCS; 2021-08-02)
PROC: B518ZZA Fluoroscopy of Superior Vena Cava, Guidance (ICD-10-PCS; 2021-08-02)
PROC: B548ZZA Ultrasonography of Superior Vena Cava, Guidance (ICD-10-PCS; 2021-08-02)
PROC: 5A1D70Z Performance of Urinary Filtration, Intermittent, Less than 6 Hours Per Day (ICD-10-PCS; 2021-08-02)
DX: T80.211A Bloodstream infection due to central venous catheter, initial encounter (principal); J96.00 Acute respiratory failure, unspecified whether with hypoxia or hypercapnia; J18.9 Pneumonia, unspecified organism; N18.6 End stage renal disease; I50.43 Acute on chronic combined systolic (congestive) and diastolic (congestive) heart failure; A41.01 Sepsis due to Methicillin susceptible Staphylococcus aureus; I31.3 Pericardial effusion (noninflammatory); R18.8 Other ascites; I13.2 Hypertensive heart and chronic kidney disease with heart failure and with stage 5 chronic kidney disease, or end stage renal disease; J90 Pleural effusion, not elsewhere classified; E78.5 Hyperlipidemia, unspecified; D64.9 Anemia, unspecified; E78.00 Pure hypercholesterolemia, unspecified; E11.22 Type 2 diabetes mellitus with diabetic chronic kidney disease; I16.0 Hypertensive urgency; I27.20 Pulmonary hypertension, unspecified; N40.0 Benign prostatic hyperplasia without lower urinary tract symptoms; K80.20 Calculus of gallbladder without cholecystitis without obstruction; D63.8 Anemia in other chronic diseases classified elsewhere; I36.1 Nonrheumatic tricuspid (valve) insufficiency; I34.0 Nonrheumatic mitral (valve) insufficiency; B96.89 Other specified bacterial agents as the cause of diseases classified elsewhere; K59.00 Constipation, unspecified; R31.0 Gross hematuria; Y83.8 Other surgical procedures as the cause of abnormal reaction of the patient, or of later complication, without mention of misadventure at the time of the procedure; Z20.822 Contact with and (suspected) exposure to COVID-19; Z99.2 Dependence on renal dialysis; Z91.15 Patient's noncompliance with renal dialysis; Z88.8 Allergy status to other drugs, medicaments and biological substances; Z79.4 Long term (current) use of insulin; Z79.899 Other long term (current) drug therapy; Z86.73 Personal history of transient ischemic attack (TIA), and cerebral infarction without residual deficits; Z87.11 Personal history of peptic ulcer disease; Z87.891 Personal history of nicotine dependence; Y92.89 Other specified places as the place of occurrence of the external cause
CPT/HCPCS: 32555; 36415; 36556; 36558; 36573; 36589; 36600; 71045; 74176; 76604; 76937; 77001; 80048; 80053; 80061; 80076; 80202; 81003; 82040; 82248; 82270; 82375; 82607; 82728; 82746; 82805; 82962; 83036; 83540; 83550; 83615; 83735; 83880; 84439; 84443; 84478; 84484; 85025; 85044; 86705; 86709; 86803; 86850; 86900; 86920; 87070; 87077; 87186; 87340; 87426; 88108; 88312; 93005; 93306; 94640; 97116; 97162; 99152; 99153; 99285; C1725; C1750; C1752; C1769; C1893; C9113; J0690; J0885; J1642; J1644; J1815; J1940; J2405; J2543; J3010; J3370; J3490; J7050; J7060; P9016; A4315; G0500